=== PATIENT | male | born 1995 | race Caucasian/White ===

== ENCOUNTER 2024-08-01 09:13 | Emergency (ER) | payer BC ==
[2024-08-01] MEDS ORDERED: Ketorolac Tromethamine 30 MG (1 mL) VIAL ONE (11:45)
== END 2024-08-01 11:51 | disposition home or self-care (01) ==
LOC: ERS 09:13
DX: M25.561 Pain in right knee (principal)
CPT/HCPCS: 96372; 99283; J1885